=== PATIENT | female | born 1985 | race Hispanic/Latino ===

== ENCOUNTER → 2016-09-11 | Outpatient (REF) | payer OTHER, MEDICAID ==
[~2016-09-11] MED LIST: TYLE325T5 PO
== END ==
LOC: M LAB REF 16:58
PROVIDERS: ATTEND Obstetrics & Gynecology
DX: Z34.83 Encounter for supervision of other normal pregnancy, third trimester (principal)

== ENCOUNTER 2016-10-02 23:34 | Inpatient (IN) | payer OTHER, MEDICAID ==
[~2016-10-02] VITALS: Ht 157.5 cm; Wt 62.0 kg
[2016-10-02 23:48] VITALS: BP 122/78
[2016-10-03] VITALS (8 sets, daily range): BP systolic 111–130; BP diastolic 67–73
[2016-10-03] MEDS ORDERED: OXYTOCIN 30 UNITS IN 0.9% NaCl 500ML IV BAG (J2590) As Ordered ONE (01:39)
[2016-10-03 01:40] LABS: MEAN CORPUSCULAR HEMOGLOBIN 32.1 pg (27.0-33.0); MEAN CORPUSCULAR HGB CONC 34.3 g/dl (32.0-36.5); MEAN CORPUSCULAR VOLUME 93.6 fl (80.0-96.0); RED CELL DISTRIBUTION WIDTH 12.4 % (11.5-14.5); WHITE BLOOD COUNT 13.6 K/mm3 (4.0-10.0)
--- NOTE | 2016-10-03 02:08 | HPE ---
DATE OF ADMISSION: 10/03/2016 REASON FOR ADMISSION: Labor. HISTORY AND HOSPITAL COURSE: Mrs. Ennis is a 30-year-old 3, para 2, who presents at 40 weeks 4 days estimated gestational age by a 6-week ultrasound with complaints of contractions. She reports her contractions started earlier this evening and increased in intensity and frequency. She denies any vaginal bleeding, leakage of fluid. Reports active movement. Her course has been remarkable for conceived with a ParaGard intrauterine device (IUD), which we removed at 7 weeks. She was also transfer to care, but initially initiated her care at 7 weeks. She transferred care at 22 weeks and has been appropriate with it throughout. PAST MEDICAL HISTORY: History of migraines. PAST SURGICAL HISTORY: She has had appendectomy and oral surgery. PAST OBSTETRICAL HISTORY: She is a 3, para 2. She has proven to 6 pounds. MEDICATIONS: Include vitamins. ALLERGIES: She has no known drug allergies. SOCIAL HISTORY: She denies any alcohol, tobacco, or drug use during the . PHYSICAL EXAMINATION: VITAL SIGNS: Stable. She is afebrile. She has a category 1 heart rate tracing with contractions approximately every 3 minutes on tachometer. GENERAL APPEARANCE: Well appearing in no acute distress. LUNGS: Clear to auscultation bilaterally. CARDIOVASCULAR: Heart is regular rate and rhythm. ABDOMEN: Soft, gravid, nontender. Estimated weight (EFW) 3100 grams. CERVICAL EXAMINATION: She is 3-4 cm dilated, 75% effaced, -2 station with a bulging bag of membranes. LABORATORIES: Her blood type is O positive. Antibody screen is negative. Rubella is immune. RPR is nonreactive. Hepatitis surface antigen is negative. HIV is negative. Hepatitis C is nonreactive. Chlamydia and gonorrhea screens are negative. She had a normal 1-hour Glucola of 82. She is group B Streptococcus (GBS) negative. ASSESSMENT: 1. Mrs. Ennis is a 30-year-old 3, para 2, who presents at 40 weeks 4 days estimated gestational age in labor. 2. Reassuring status. PLAN: 1. Admit to labor and delivery. CBC, RPR, type and screen. 2. Anticipate spontaneous vaginal delivery.
[2016-10-03] MEDS ORDERED: OXYTOCIN DRIP 30 UNITS in APPROPRIATE DILUENT 1 EA IV SCH (02:14)
[2016-10-03] MEDS ORDERED: ANUSOL HC CREAM 30GM TOP PRN (02:15)
[2016-10-03] MEDS ORDERED: ACETAMINOPHEN 500 MG TAB PO PRN (02:15)
[2016-10-03] MEDS ORDERED: MOM 30ML SUSPENSION UDC PO PRN (02:15)
[2016-10-03] MEDS ORDERED: METHYLERGONOVINE MALEATE 0.2 MG TAB PO PRN (02:15)
[2016-10-03] MEDS ORDERED: MEASLES,MUMPS,RUBELLA VACCINE INJ (MMR-II) (90707) SC SCH (02:15)
[2016-10-03] MEDS ORDERED: RHOGAM 300 MCG (1500 IU) INJ (J2790) IM SCH (02:15)
[2016-10-03] MEDS ORDERED: DOCUSATE SODIUM 100 MG CAP PO PRN (02:15)
[2016-10-03] MEDS ORDERED: DIBUCAINE 1% OINTMENT 30GM TOP PRN (02:15)
--- NOTE | 2016-10-03 02:27 | DN ---
DATE OF DELIVERY: 10/03/2016 TIME OF : 0204 GENDER: Female. SCORES: 9 and 10. WEIGHT: 6 pounds 3 ounces or 2808 grams. ANESTHESIA: None. LACERATIONS: None. COUNTS: Five laparotomy sponges accounted for prior to and after delivery. DELIVERY NOTE: On 10/03/2016, at 0204, Mrs. Ennis, a 30-year-old 3, now para 3 had a spontaneous vaginal delivery of a liveborn female infant, scores 9 and 10, weight 6 pounds 3 ounces or 2808 grams. Head was delivered occiput anterior (OA) over an intact perineum followed by delivery of anterior and posterior shoulders and corpus. Infant was handed to mother with a good cry. Cord was clamped times two, was cut by the patient's support person under my direction. Cord blood was obtained. The placenta was then drained and delivered grossly intact. A premixed bag of 500 mL of normal saline with 30 units of Pitocin was then bolused along with uterine massage until the uterus was firm. Upon inspection, the cervix, vagina, and perineum were grossly intact, hemostatic. Mother and baby recovered in stable condition.
[2016-10-03] MEDS: IBUPROFEN 800 MG TAB PO PRN ×2 (04:12→16:25)
[2016-10-03] MEDS ORDERED: PRENATAL VITAMIN TAB PO SCH (09:00)
[2016-10-04 06:09] VITALS: BP 126/65
[2016-10-04] MEDS ORDERED: ACET50TA PO (09:47)
[2016-10-04] MEDS ORDERED: IBUP-1114 PO (09:52)
[2016-10-04] MEDS ORDERED: COLA100C PO (09:52)
[2016-10-04] MEDS ORDERED: MOM30SS PO (09:53)
== END 2016-10-04 13:25 | disposition home or self-care (01) | DRG 560 ==
LOC: M LDO 23:34 → M LDI 10-03 00:15 → M OBS 10-03 03:36
PROVIDERS: ADMIT Obstetrics & Gynecology; ATTEND Obstetrics & Gynecology
PROC: 10E0XZZ Delivery of Products of Conception, External Approach (ICD-10-PCS; principal; 2016-10-03)
PROC: 10907ZC Drainage of Amniotic Fluid, Therapeutic from Products of Conception, Via Natural or Artificial Opening (ICD-10-PCS; 2016-10-03)
DX: O48.0 Post-term pregnancy (principal); Z37.0 Single live birth; Z3A.40 40 weeks gestation of pregnancy

== ENCOUNTER 2017-02-05 08:51 | Emergency (ER) | payer MEDICAID, OTHER ==
[~2017-02-05] VITALS: Ht 157.5 cm; Wt 55.4 kg
[~2017-02-05 08:51] MED LIST changes: +ACET50TA PO; +COLA100C5 PO; +IBUP-1114 PO; +MOM30SS PO
[2017-02-05 08:52] VITALS: BP 106/54
== END 2017-02-05 09:47 | disposition home or self-care (01) ==
LOC: M ED 08:51
DX: J06.9 Acute upper respiratory infection, unspecified (principal)

== ENCOUNTER → 2019-03-30 | Outpatient (REF) | payer OTHER, MEDICAID ==
[~2019-03-30] MED LIST changes: -ACET50TA PO; +MAPA500T2 PO
[2019-04-04 14:07] LABS: HPV HYBRID CAPTURE II Negative (Negative)
== END ==
LOC: M LAB REF 17:10
PROVIDERS: ATTEND Advanced Practice Midwife
DX: Z12.4 Encounter for screening for malignant neoplasm of cervix (principal)

== ENCOUNTER → 2019-04-07 | Outpatient (CLI) | payer OTHER ==
--- NOTE | 2019-04-07 15:05 | REP ---
Pelvic sonography: History: IUD placement. Findings: Transabdominal and transvaginal scanning are performed. Uterine dimensions are normal measured at 8.3 x 3.6 x 5.0 cm. Endometrial echo is 0.5 cm thick. An IUD is seen in good position in the uterine endometrium. No focal uterine mass is seen. No free fluid is noted. Normal ovaries are seen bilaterally. Right ovarian dimensions of 4.8 x 2.3 x 3.6 cm, calculated volume 21 ml. Left ovary measures 4.1 x 2.0 x 3.0 cm, calculated volume 13 ml. Doppler flow is normal to both ovaries, resistive indices are 0.59 and 0.29 on the right and left respectively. Impression: Normal pelvic sonography. IUD is seen in good position. Electronically Signed by Benton Toscano MD 04/07/2019 03:07 P
== END ==
LOC: M RAD 13:40
PROVIDERS: ATTEND Advanced Practice Midwife
DX: Z30.431 Encounter for routine checking of intrauterine contraceptive device (principal)

== ENCOUNTER → 2019-10-02 | Outpatient (REF) | payer OTHER ==
[2019-10-02 18:36] LABS: INFLUENZA A AMPLIFICATION POSITIVE (NEGATIVE); INFLUENZA B AMPLIFICATION NEGATIVE (NEGATIVE)
== END ==
LOC: M LAB REF 16:16
PROVIDERS: ATTEND Physician Assistant Medical
DX: J11.1 Influenza due to unidentified influenza virus with other respiratory manifestations (principal)

== ENCOUNTER → 2020-09-03 | Outpatient (REF) | payer OTHER | LOC: M SFHCWAGY 13:51 | PROVIDERS: ATTEND Advanced Practice Midwife | DX: Z12.4 Encounter for screening for malignant neoplasm of cervix (principal) ==

== ENCOUNTER 2021-11-02 10:18 | Emergency (ER) | payer OTHER ==
[~2021-11-02] VITALS: Ht 157.5 cm; Wt 57.4 kg
[2021-11-02 10:20] VITALS: BP 120/61
== END 2021-11-02 11:44 | disposition left against medical advice (07) ==
LOC: M ED 10:18
DX: Z53.21 Procedure and treatment not carried out due to patient leaving prior to being seen by health care provider (principal)

== ENCOUNTER → 2021-11-14 | Outpatient (CLI) | payer OTHER ==
[2021-11-14 13:59] LABS: BASO # 0.1 10^3/uL (0.0-0.2); BASO % 0.8 % (0.0-1.0); EOS # 0.1 10^3/uL (0.0-0.5); EOS % 1.3 % (0.0-3.0); HEMATOCRIT 42.1 % (36.0-47.0); HEMOGLOBIN 13.7 g/dl (12.0-15.5); LYMPH # 2.8 10^3/uL (1.5-5.0); LYMPH % 47.4 % (24.0-44.0); MEAN CORPUSCULAR HEMOGLOBIN 32.3 pg (27.0-33.0); MEAN CORPUSCULAR HGB CONC 32.5 g/dl (32.0-36.5); MEAN CORPUSCULAR VOLUME 99.3 fl (80.0-96.0); MONO # 0.5 10^3/uL (0.0-0.8); NEUTROPHILS # 2.5 10^3/uL (1.5-8.5); NEUTROPHILS % 41.3 % (36.0-66.0); PLATELET COUNT, AUTOMATED 261 10^3/uL (150-450); RED BLOOD COUNT 4.24 10^6/uL (4.00-5.40)
[2021-11-14 14:41] LABS: ALBUMIN 3.9 GM/DL (3.2-5.2); ALT/SGPT 15 U/L (12-78); BILIRUBIN,TOTAL 0.5 MG/DL (0.2-1.0); BLOOD UREA NITROGEN 10 MG/DL (7-18); CALCIUM LEVEL 9.1 MG/DL (8.5-10.1); CARBON DIOXIDE LEVEL 30 MEQ/L (21-32); CHLORIDE LEVEL 104 MEQ/L (98-107); CREATININE FOR GFR 0.73 MG/DL (0.55-1.30); GLOMERULAR FILTRATION RATE > 60.0 (>60); GLUCOSE, FASTING 87 MG/DL (70-100); POTASSIUM SERUM 4.2 MEQ/L (3.5-5.1); RHEUMATOID FACTOR QUANT < 10.0 IU/ML (<15.0); SODIUM LEVEL 138 MEQ/L (136-145); TOTAL 25(OH) VITAMIN D 13.5 NG/ML (30.0-100.0); TOTAL PROTEIN 7.7 GM/DL (6.4-8.2)
[2021-11-16 20:07] LABS: ANTINUCLEAR ANTIBODIES DIRECT Negative (Negative); CYCLIC CITRULLINATED PEPTIDE 8 units (0-19)
== END ==
LOC: M PLAIMG 09:19
PROVIDERS: ATTEND Nurse Practitioner Family
DX: Z00.00 Encounter for general adult medical examination without abnormal findings (principal); E55.9 Vitamin D deficiency, unspecified; M54.2 Cervicalgia; M25.50 Pain in unspecified joint

== ENCOUNTER → 2022-08-13 | Outpatient (CLI) | payer OTHER ==
[2022-08-13 16:04] LABS: ALBUMIN 3.8 G/DL (3.2-5.2); ALKALINE PHOSPHATASE 64 U/L (46-116); ALT/SGPT < 9 U/L (7.0-40); AST/SGOT 19 U/L (<34); BILIRUBIN,TOTAL 0.3 MG/DL (0.3-1.2); BLOOD UREA NITROGEN 13 MG/DL (9-23); CALCIUM LEVEL 9.1 MG/DL (8.5-10.1); CARBON DIOXIDE LEVEL 30 MMOL/L (20-31); CHLORIDE LEVEL 102 MMOL/L (98-107); CREATININE FOR GFR 0.61 MG/DL (0.55-1.30); GLOMERULAR FILTRATION RATE > 60.0 (>60); GLUCOSE, FASTING 82 MG/DL (60-100); POTASSIUM SERUM 4.2 MMOL/L (3.5-5.1); SODIUM LEVEL 137 MMOL/L (136-145); TOTAL PROTEIN 7.4 G/DL (5.7-8.2)
[2022-08-13 16:05] LABS: FREE THYROXINE INDEX 2.7 % (1.3-4.8); T UPTAKE 28.1 % (22.5-37.0); THYROID STIMULATING HORMONE 2.034 uIU/ML (0.55-4.78); THYROXINE (T4) 9.5 UG/DL (4.5-10.9)
[2022-08-13 16:06] LABS: FOLATE 17.5 NG/ML (>5.4)
[2022-08-13 16:07] LABS: VITAMIN B12 LEVEL 497 PG/ML (211-911)
[2022-08-13 16:11] LABS: BASO % 0.6 % (0.0-1.0); EOS % 0.6 % (0.0-3.0); HEMOGLOBIN 13.2 g/dl (12.0-15.5); LYMPH # 2.1 10^3/uL (1.5-5.0); LYMPH % 31.7 % (24.0-44.0); MEAN CORPUSCULAR HEMOGLOBIN 32.3 pg (27.0-33.0); MEAN CORPUSCULAR HGB CONC 32.2 g/dl (32.0-36.5); MEAN CORPUSCULAR VOLUME 100.2 fl (80.0-96.0); MONO # 0.6 10^3/uL (0.0-0.8); NEUTROPHILS # 3.8 10^3/uL (1.5-8.5); NEUTROPHILS % 57.8 % (36.0-66.0); PLATELET COUNT, AUTOMATED 225 10^3/uL (150-450); RED BLOOD COUNT 4.09 10^6/uL (4.00-5.40); WHITE BLOOD COUNT 6.6 10^3/uL (4.0-10.0)
[2022-08-13 16:26] LABS: ERYTHROCYTE SEDIMENTATION RATE 15 mm/hr (0-20)
[2022-08-17 18:07] LABS: IMMUNOTYPING SERUM IGA 340 mg/dL (87-352); IMMUNOTYPING SERUM IGG 1441 mg/dL (586-1602); IMMUNOTYPING SERUM IGM 75 mg/dL (26-217)
[2022-08-17 19:07] LABS: ALBUMIN 3.8 g/dL (2.9-4.4); ALPHA-1-GLOBULINS 0.2 g/dL (0.0-0.4); ALPHA-2-GLOBULINS 0.7 g/dL (0.4-1.0); GAMMA GLOBULINS 1.5 g/dL (0.4-1.8); TOTAL PROTEIN ELECTROPHORESIS 7.2 g/dL (6.0-8.5)
== END ==
LOC: M PLALAB 12:30
PROVIDERS: ATTEND Psychiatry & Neurology Neurology
DX: E11.40 Type 2 diabetes mellitus with diabetic neuropathy, unspecified (principal); E07.9 Disorder of thyroid, unspecified

== ENCOUNTER 2024-09-16 21:15 | Emergency (ER) | payer BC, MEDICARE, OTHER, SELFPAY ==
[~2024-09-16] VITALS: Ht 157.5 cm; Wt 64.5 kg
[2024-09-16 21:17] VITALS: BP 116/55; TEMP 98.7; O2SAT 98
[2024-09-16 22:17] LABS: BASO # 0.1 10^3/uL (0.0-0.2); BASO % 0.8 % (0.0-1.0); EOS # 0.2 10^3/uL (0.0-0.5); EOS % 1.8 % (0.0-3.0); HEMATOCRIT 38.2 % (36.0-47.0); HEMOGLOBIN 12.9 g/dl (12.0-15.5); LYMPH # 3.4 10^3/uL (1.5-5.0); LYMPH % 39.5 % (24.0-44.0); MEAN CORPUSCULAR HEMOGLOBIN 33.2 pg (27.0-33.0); MEAN CORPUSCULAR HGB CONC 33.8 g/dl (32.0-36.5); MEAN CORPUSCULAR VOLUME 98.5 fl (80.0-96.0); MONO # 0.9 10^3/uL (0.0-0.8); MONO % 10.2 % (2.0-8.0); NEUTROPHILS % 47.5 % (36.0-66.0); PLATELET COUNT, AUTOMATED 241 10^3/uL (150-450); RED BLOOD COUNT 3.88 10^6/uL (4.00-5.40); WHITE BLOOD COUNT 8.5 10^3/uL (4.0-10.0)
[2024-09-17 00:42] LABS: APPEARANCE, URINE CLEAR (CLEAR); BACTERIA, URINE AUTO NEGATIVE (NEGATIVE); BILIRUBIN, URINE AUTO NEGATIVE (NEGATIVE); BLOOD, URINE BLOOD 3+ (NEGATIVE); COLOR, URINE STRAW (YELLOW); GLUCOSE, URINE (UA) AUTO NEGATIVE (NEGATIVE); KETONE, URINE AUTO NEGATIVE (NEGATIVE); LEUKOCYTE ESTERASE, URINE AUTO NEGATIVE (NEGATIVE); NITRITE, URINE AUTO NEGATIVE (NEGATIVE); PROTEIN, URINE AUTO NEGATIVE (NEGATIVE); RBC, URINE AUTO 55 /HPF (0-3); SPECIFIC GRAVITY URINE AUTO 1.005 (1.002-1.035); SQUAMOUS EPITHELIAL CELL UR AU 0 /HPF (0-6); UROBILINOGEN, URINE AUTO 0.2 mg/dL (0.0-2.0); WBC, URINE AUTO 19 /HPF (0-3)
[2024-09-17 02:00] LABS: GC DNA AMPLIFICATION NEGATIVE (NEGATIVE)
== END 2024-09-17 02:19 | disposition home or self-care (01) ==
LOC: M ED 21:15
DX: O02.1 Missed abortion (principal)

== ENCOUNTER → 2025-02-15 | Outpatient (CLI) | payer BC | LOC: M PLALAB 08:18 | PROVIDERS: ATTEND Nurse Practitioner Family | DX: N39.0 Urinary tract infection, site not specified (principal); O09.521 Supervision of elderly multigravida, first trimester; O09.291 Supervision of pregnancy with other poor reproductive or obstetric history, first trimester; Z3A.12 12 weeks gestation of pregnancy ==

== ENCOUNTER → 2025-04-02 | Outpatient (CLI) | payer BC | LOC: M WHC 08:43 | PROVIDERS: ATTEND Nurse Practitioner Family | DX: O09.522 Supervision of elderly multigravida, second trimester (principal); O09.292 Supervision of pregnancy with other poor reproductive or obstetric history, second trimester; Z3A.19 19 weeks gestation of pregnancy ==

== ENCOUNTER → 2025-04-23 | Outpatient (CLI) | payer BC | LOC: M RAD 08:34 | PROVIDERS: ATTEND Nurse Practitioner Family | DX: O09.522 Supervision of elderly multigravida, second trimester (principal); Z3A.22 22 weeks gestation of pregnancy ==

== ENCOUNTER → 2025-05-25 | Outpatient (CLI) | payer BC ==
[2025-05-25 11:00] LABS: PLATELET COUNT, AUTOMATED 255 10^3/uL (150-450)
[2025-05-25 11:03] LABS: GLUCOSE CHALLENGE TEST 1 HOUR 108 MG/DL (LESS THAN 140)
[2025-05-25 11:38] LABS: HIV 1&2 SCREEN NEGATIVE (NEGATIVE)
[2025-05-25 11:46] LABS: HEPATITIS C VIRUS ABY INDEX < 0.02 INDEX (<0.8)
[2025-05-25 12:38] LABS: Trichomonas vaginalis (AMP) NOT DETECTED (NEGATIVE)
[2025-05-25 13:02] LABS: GC DNA AMPLIFICATION NEGATIVE (NEGATIVE)
== END ==
LOC: M PLALAB 07:34
PROVIDERS: ATTEND Nurse Practitioner Family
DX: Z34.80 Encounter for supervision of other normal pregnancy, unspecified trimester (principal)

== ENCOUNTER → 2025-05-25 | Outpatient (CLI) | payer BC | LOC: M WHC 11:11 | PROVIDERS: ATTEND Nurse Practitioner Family | DX: Z34.80 Encounter for supervision of other normal pregnancy, unspecified trimester (principal) ==

== ENCOUNTER 2025-07-16 09:06 | Emergency (ER) | payer BC ==
[~2025-07-16] VITALS: Ht 157.5 cm; Wt 70.8 kg
[~2025-07-16 09:06] MED LIST changes: -PRENTAB9 PO
[2025-07-16 09:10] VITALS: BP 108/62; TEMP 97.5; O2SAT 99
[2025-07-16] MEDS ORDERED: PRENTAB9 PO (09:37)
== END 2025-07-16 10:28 | disposition admitted as inpatient to this hospital (09) ==
LOC: M ED 09:06
DX: Z53.21 Procedure and treatment not carried out due to patient leaving prior to being seen by health care provider (principal)

== ENCOUNTER 2025-07-16 09:17 | Outpatient (CLI) | payer BC ==
[~2025-07-16] VITALS: Ht 157.5 cm; Wt 72.5 kg
[2025-07-16] MEDS ORDERED: PRENTAB9 PO (09:37)
== END 2025-07-16 10:36 | disposition home or self-care (01) ==
LOC: M LDO 09:17
PROVIDERS: ATTEND Advanced Practice Midwife
DX: O26.893 Other specified pregnancy related conditions, third trimester (principal); O09.523 Supervision of elderly multigravida, third trimester; N89.8 Other specified noninflammatory disorders of vagina; Z3A.34 34 weeks gestation of pregnancy; R00.2 Palpitations
CPT/HCPCS: 59025; 93005; G0463

== ENCOUNTER → 2025-07-16 | Outpatient (CLI) | payer BC ==
[~2025-07-16] MED LIST changes: +PRENTAB9 PO
== END ==
LOC: M EKG 16:40
PROVIDERS: ATTEND Nurse Practitioner Family
DX: R00.2 Palpitations (principal)